=== PATIENT | male | born 1990 | race African-American/Black ===

== ENCOUNTER 2017-07-23 14:14 | Emergency (ER) | payer OTHER ==
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
[~2017-07-23 14:14] MED LIST: NO MEDICATIONS
== END 2017-07-23 17:18 | disposition home or self-care (01) ==
LOC: SED 14:14
DX: S39.012A Strain of muscle, fascia and tendon of lower back, initial encounter (principal); S46.912A Strain of unspecified muscle, fascia and tendon at shoulder and upper arm level, left arm, initial encounter; M25.561 Pain in right knee; M25.562 Pain in left knee; M54.2 Cervicalgia; Z88.0 Allergy status to penicillin; Z88.8 Allergy status to other drugs, medicaments and biological substances; V43.52XA Car driver injured in collision with other type car in traffic accident, initial encounter
CPT/HCPCS: 72100; 73030; 96372; 99283; J1885; J2360